=== PATIENT | male | born 2000 | race African-American/Black ===

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

== ENCOUNTER 2022-03-11 17:54 | Inpatient (IN) | payer MEDICAID, OTHER ==
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
[2022-03-11 20:21] LABS: Amphetamine Screen,Urine Not Detected (NotDetected); Barbiturate Screen,Urine Not Detected (NotDetected); Benzodiazepines Screen,Urine Not Detected (NotDetected); Cocaine Screen,Urine Not Detected (NotDetected); Methadone Screen, Urine Not Detected (NotDetected); Opiate Screen,Urine Not Detected (NotDetected); Oxycodone Screen, Urine Not Detected (NotDetected); Phencyclidine Screen,Urine Not Detected (NotDetected); Tricyclic Antidepressant,Urine Not Detected (NotDetected); Urn Cannabinoid Scrn Detected (NotDetected)
[2022-03-11] MEDS ORDERED: LORazepam 1 MG TAB PO PRN (21:18)
[2022-03-11] MEDS ORDERED: ACETAMINOPHEN TAB 325 MG TAB PO PRN ×2 (21:18→22:38)
[2022-03-11] MEDS ORDERED: MAG HYDROX/AL HYDROX/SIMETH 30 ML CUP PO PRN ×2 (21:18→22:43)
[2022-03-11] MEDS ORDERED: MAGNESIUM HYDROXIDE 2,400 MG/10 ML CUP PO PRN ×2 (21:18→22:44)
[2022-03-11] MEDS ORDERED: HALOPERIDOL LACTATE 5 MG/ML 1 ML VIAL IM PRN ×3 (21:18→22:42)
[2022-03-11] MEDS ORDERED: LORazepam 2 MG/ML INJ IM PRN ×2 (21:21→22:42)
[2022-03-11] MEDS ORDERED: haloperidoL 5 MG TAB PO PRN (21:22)
[2022-03-12 00:27] VITALS: BP 142/74; PULSE 75; RESP 14; TEMP 97.8
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
[2022-03-12 07:12] LABS: HCT 47.1 % (39.0-53.0); MCH 29.8 pg (25.0-35.0); MCV 87.6 fL (80.0-100.0); Mean Platelet Volume 8.4; Platelet Count 203 k/uL (150-450); RBC 5.38 m/uL (4.30-5.90); RDW 13.3 % (11.5-15.5)
[2022-03-12 07:41] LABS: ALT 21 U/L (4-49); AST 35 U/L (17-59); African American GFR (CKD) >90 (>60 ml/min/1.73 sqM); Albumin 4.2 g/dL (3.5-5.0); Alkaline Phosphatase 63 U/L (38-126); Anion Gap 13 mmol/L; Blood Urea Nitrogen 9 mg/dL (9-20); Calcium 9.6 mg/dL (8.4-10.2); Carbon Dioxide 26 mmol/L (22-30); Chloride 101 mmol/L (98-107); Glucose 86 mg/dL (74-99); Non-African American GFR(CKD) >90 (>60 ml/min/1.73 sqM); Potassium 3.9 mmol/L (3.5-5.1); Sodium 140 mmol/L (137-145); Total Bilirubin 2.6 mg/dL (0.2-1.3); Total Protein 7.2 g/dL (6.3-8.2)
[2022-03-12 07:45] LABS: T4, Free (Free Thyroxine) 1.14 ng/dL (0.78-2.19)
[2022-03-12] MEDS ORDERED: NICOTINE 14MG/24HR PATCH TRANSDERM SCH (09:00)
[2022-03-12 11:51] LABS: LDL Cholesterol,Calculated 67.5 mg/dL (0.0-131.0)
[2022-03-12 12:55] VITALS: BMI 25.2
[2022-03-12 14:46] LABS: Amorphous Sediment,Urine Many /hpf; Appearance,Urine Turbid (Clear); Bilirubin,Urine Negative (Negative); Blood,Urine Negative (Negative); Calcium Oxalate Crystals,Urine Few /hpf; Color,Urine Yellow; Glucose,Urine (UA) Negative (Negative); Ketones,Urine Trace (Negative); Leukocyte Esterase,Urine Negative (Negative); Mucus,Urine Moderate /hpf; Nitrite,Urine Negative (Negative); Protein,Urine 1+ (Negative); RBC,Urine 2 /hpf (0-5); Specific Gravity,Urine 1.032 (1.001-1.035)
[2022-03-12] MEDS: LORazepam 1 MG TAB PO PRN (15:07)
[2022-03-12] MEDS: haloperidoL 5 MG TAB PO PRN (17:36)
--- NOTE | 2022-03-12 20:08 | P.HP ---
Psychiatric H&P - . H&P Date: 03/12/22 History & Physical: Allergies Allergy/AdvReac Type Severity Reaction Status Date / Time No Known Allergies Allergy Verified 03/11/22 20:00 Vital Signs Temp 97.8 F 03/12/22 00:26 Pulse 75 03/12/22 00:26 Resp 14 03/12/22 00:26 BP 142/74 03/12/22 00:26 Pulse Ox 99 03/11/22 21:27 FiO2 Intake & Output 03/11/22 03/12/22 03/12/22 18:59 06:59 18:59 Weight 65.771 kg 79.7 kg 79.7 kg Laboratory Last Values WBC 11.0 k/uL (4.0-11.0) 03/12/22 06:33 RBC 5.38 m/uL (4.30-5.90) 03/12/22 06:33 Hgb 16.0 gm/dL (13.0-17.5) 03/12/22 06:33 Hct 47.1 % (39.0-53.0) 03/12/22 06:33 MCV 87.6 fL (80.0-100.0) 03/12/22 06:33 MCH 29.8 pg (25.0-35.0) 03/12/22 06:33 MCHC 34.0 g/dL (31.0-37.0) 03/12/22 06:33 RDW 13.3 % (11.5-15.5) 03/12/22 06:33 Plt Count 203 k/uL (150-450) 03/12/22 06:33 MPV 8.4 03/12/22 06:33 Sodium 140 mmol/L (137-145) 03/12/22 06:33 Potassium 3.9 mmol/L (3.5-5.1) 03/12/22 06:33 Chloride 101 mmol/L (98-107) 03/12/22 06:33 Carbon Dioxide 26 mmol/L (22-30) 03/12/22 06:33 Anion Gap 13 mmol/L 03/12/22 06:33 BUN 9 mg/dL (9-20) 03/12/22 06:33 Creatinine 1.01 mg/dL (0.66-1.25) 03/12/22 06:33 Est GFR (CKD-EPI)AfAm >90 (>60 ml/min/1.73 sqM) 03/12/22 06:33 Est GFR (CKD-EPI)NonAf >90 (>60 ml/min/1.73 sqM) 03/12/22 06:33 Glucose 86 mg/dL (74-99) 03/12/22 06:[address] Glu mg/dL 106 03/12/22 06:33 Hemoglobin A1c 5.3 % (0.0-6.0) 03/12/22 06:33 Calcium 9.6 mg/dL (8.4-10.2) 03/12/22 06:33 Total Bilirubin 2.6 mg/dL (0.2-1.3) H 03/12/22 06:33 AST 35 U/L (17-59) 03/12/22 06:33 ALT 21 U/L (4-49) 03/12/22 06:33 Alkaline Phosphatase 63 U/L (38-126) 03/12/22 06:33 Total Protein 7.2 g/dL (6.3-8.2) 03/12/22 06:33 Albumin 4.2 g/dL (3.5-5.0) 03/12/22 06:33 Triglycerides 62.50 mg/dL (0.00-149.00) 03/12/22 06:33 Cholesterol 137.00 mg/dL (0.00-200.00) 03/12/22 06:33 LDL Cholesterol, Calc 67.5 mg/dL (0.0-131.0) 03/12/22 06:33 VLDL Cholesterol, Calc 12.50 mg/dL (5.00-40.00) 03/12/22 06:33 HDL Cholesterol 57.00 mg/dL (40.00-60.00) 03/12/22 06:33 Cholesterol/HDL Ratio 2.40 Ratio 03/12/22 06:33 Free T4 1.14 ng/dL (0.78-2.19) 03/12/22 06:33 Urine Color Yellow 03/11/22 20:17 Urine Appearance Turbid (Clear) 03/11/22 20:17 Urine pH 6.0 (5.0-8.0) 03/11/22 20:17 Ur Specific [place] 1.032 (1.001-1.035) 03/11/22 20:17 Urine Protein 1+ (Negative) H 03/11/22 20:17 Urine Glucose (UA) Negative (Negative) 03/11/22 20:17 Urine Ketones Trace (Negative) H 03/11/22 20:17 Urine Blood Negative (Negative) 03/11/22 20:17 Urine Nitrite Negative (Negative) 03/11/22 20:17 Urine Bilirubin Negative (Negative) 03/11/22 20:17 Urine Urobilinogen 4.0 mg/dL (<2.0) 03/11/22 20:17 Ur Leukocyte Esterase Negative (Negative) 03/11/22 20:17 Urine RBC 2 /hpf (0-5) 03/11/22 20:17 Calcium Oxalate Crystal Few /hpf (None) H 03/11/22 20:17 Amorphous Sediment Many /hpf (None) H 03/11/22 20:17 Urine Mucus Moderate /hpf (None) H 03/11/22 20:17 Urine Opiates Screen Not Detected (NotDetected) 03/11/22 20:09 Ur Oxycodone Screen Not Detected (NotDetected) 03/11/22 20:09 Urine Methadone Screen Not Detected (NotDetected) 03/11/22 20:09 Ur Propoxyphene Screen Not Detected (NotDetected) 03/11/22 20:09 Ur Barbiturates Screen Not Detected (NotDetected) 03/11/22 20:09 U Tricyclic Antidepress Not Detected (NotDetected) 03/11/22 20:09 Ur Phencyclidine Scrn Not Detected (NotDetected) 03/11/22 20:09 Ur Amphetamines Screen Not Detected (NotDetected) 03/11/22 20:09 U Methamphetamines Scrn Not Detected (NotDetected) 03/11/22 20:09 U Benzodiazepines Scrn Not Detected (NotDetected) 03/11/22 20:09 Urine Cocaine Screen Not Detected (NotDetected) 03/11/22 20:09 U Marijuana (THC) Screen Detected (NotDetected) H 03/11/22 20:09 Coronavirus (PCR) Not Detected (Not Detectd) 03/11/22 19:55 03/12/22 17:54 IDENTIFYING DATA: Patient is a single 21-year-old male who is presenting from police hold for suicide attempt via hanging from seat belt HPI: Patient reports that he had an altercation with his brother. Police were called and while the patient was in the police vehicle, he attempted suicide via hanging himself with a seat belt. He was therefore brought in to the ED. UDS was positive for THC. Patient reports that he has been anxious regarding his legal status. Patient reports that he is currently on probation and was worried about the new charges. As a result, he attempted suicide. He endorses having a history of anxiety and worrying about his future. He endorses feeling restless and having trouble concentrating. In psychiatric review of systems, patient denies feeling depressed most days. However, patient does endorse that he was trying to kill himself due to his low mood (secondary to legal status). He reports sleeping well at night generally. He enjoys spending time with friends. He reports good energy and good appetite. She denies symptoms consistent with thao. He denies symptoms of psychosis including auditory and visual hallucinations, ideas of reference, and paranoia. PSYCH HX: Previous psychiatrist: Denies outpatient psych but was scheduled to go to [facility] in the past Therapist: Denies Past tx: Ritalin, Adderall, Risperdal Hospitalizations: Denies NSSI: Denies SA: Denies PMH: Sickle cell anemia ALLERGIES: Denies PCP: Denies Head injuries: Denies Seizures: Denies SUBSTANCE HX: Alcohol: Denies Cannabis: Few times a week Denies using other substances SOCIAL/LEGAL HX: Lives with mother, brother, and step-father. He reports having a good childhood. Vocation: [employer] Legal problems: Currently on probation Highest level of education: [employer]4 completed 2 semesters. In IEP during school. FAM PSYCH HX: Denies Suicide attempts: Denies DEVELOPMENT: Denies /labor complications. MENTAL STATUS EXAM: Patient is a 21-year-old AA male who appears his stated age. He is dressed casually. Grooming and hygiene are appropriate.Visible coleman around his neck. Good eye contact. No abnormal movements (facial tics or tremors) are appreciated. Does not appear to be restless. Cooperative to interview. Speaks Venezuelan. Speech is clear and coherent with regular rate and intonation. Mood is anxious. Affect is mood congruent. Thought process is linear and goal-directed. Patient participates in conversation and answers questions appropriately. Thought content: Recent suicide attempt. Engaged in treatment planning today. Denies AVH, paranoia. A&Ox3. Attention and concentration intact to interview. No evidence that patient is responding to internal stimuli. Recent and remote memory are intact to interview. Judgment limited. Insight is limited. STRENGTHS/WEAKNESSES: Legal issues but has family support INTELLECT: average IMPRESSIONS: Adjustment disorder with depressed mood and anxiety H/O ADHD PLAN: -Patient is admitted under voluntary status to MHU for stabilization of psychiatric symptoms and safety. Patient signed adult voluntary form and medication consent and is placed in patient's chart. -Medications : Will start patient on Wellbutrin XL 150 mg daily -Haldol and Ativan PRNs for agitation/anxiety -Patient was counselled on substance abuse and desired to cut back on use -Patient was informed of the risks, benefits and side effects of the medication and patient verbally consented to taking the medications. Patient signed med consent form and was placed in chart. -Internal Medicine consult to perform medical evaluation and physical. -SW on board for discharge planning. Encourage patient to participate in groups to work on coping skills. 03/12/22 19:53 03/12/22 20:04
[2022-03-13] MEDS: buPROPion XL 150 MG TAB.ER.24H PO SCH (08:26)
[2022-03-13] MEDS: LORazepam 1 MG TAB PO PRN ×2 (10:06→21:12)
--- NOTE | 2022-03-13 17:31 | P.PN ---
Progress Note - Text Progress Note Date: 03/13/22 Interval History: Patient reports that he has sorted out the situation with police and therefore has been feeling slightly better. He continues to have somewhat low mood. He denies side effects to Wellbutrin. He reported trouble sleeping last night. Patient earlier became agitated with a roommate and krysta renee was called. The patient then responded to redirection by nursing staff and this provider. He wanted his room to be changed and felt that the staff was not hearing him. He denies current suicidal ideation but is unable to provide coping skills to prevent further decompensation. He attended groups. Patient denies HI and denies access to firearms at home. Mental Status Exam: Patient is a 21-year-old AA male who appears his stated age. He is dressed casually. Grooming and hygiene are appropriate.Visible coleman around his neck. Good eye contact. No abnormal movements (facial tics or tremors) are appreciated. Does not appear to be restless. Cooperative to interview. Speaks Bangladeshi. Speech is clear and coherent with regular rate and intonation. Mood is anxious. Affect is mood congruent. Thought process is linear and goal-directed. Patient participates in conversation and answers questions appropriately. Thought content: Recent suicide attempt. Engaged in treatment planning today. Denies AVH, paranoia. A&Ox3. Attention and concentration intact to interview. No evidence that patient is responding to internal stimuli. Recent and remote memory are intact to interview. Judgment limited. Insight is limited. Assessment Adjustment disorder with depressed mood and anxiety H/O ADHD Plan: -Patient is admitted under voluntary status to MHU for stabilization of psychiatric symptoms and safety. Patient signed adult voluntary form and medication consent and is placed in patient's chart. -Medications : Wellbutrin XL 150 mg daily and trazodone 50 mg qHS for sleep -Haldol and Ativan PRNs for agitation/anxiety -Patient was counselled on substance abuse and desired to cut back on use -Patient was informed of the risks, benefits and side effects of the medication and patient verbally consented to taking the medications. Patient signed med consent form and was placed in chart. -Internal Medicine consult to perform medical evaluation and physical. -SW on board for discharge planning. Encourage patient to participate in groups to work on coping skills.
[2022-03-13] MEDS ORDERED: traZODone HCL 50 MG TAB PO SCH (21:00)
[2022-03-13] MEDS: haloperidoL 5 MG TAB PO PRN (21:12)
[2022-03-14] MEDS: buPROPion XL 150 MG TAB.ER.24H PO SCH (08:55)
--- NOTE | 2022-03-14 11:18 | P.DS ---
Providers Date of admission: 03/11/22 21:10 Expected date of discharge: 03/14/22 Attending physician: Rj Kimball MD Consults: 03/11/22 23:06 Consult Physician Routine Consulting Provider: Marcelo Luciano Consult Reason/Comments: Medical management Do you want consulting provider notified?: Yes Primary care physician: Stated None - Discharge Diagnosis(es) (1) Adjustment disorder with mixed anxiety and depressed mood Current Visit: Yes Status: Acute Priority: High (2) Personality disorder, unspecified Current Visit: Yes Status: Acute Priority: High (3) Cannabis use disorder Current Visit: Yes Status: Acute Priority: Low Hospital Course: Admission HPI: Admission note was completed by Dr Altman "Patient is a single 21-year-old male who is presenting from police hold for suicide attempt via hanging from seat belt. Patient reports that he had an altercation with his brother. Police were called and while the patient was in the police vehicle, he attempted suicide via hanging himself with a seat belt. He was therefore brought in to the ED. UDS was positive for THC. Patient reports that he has been anxious regarding his legal status. Patient reports that he is currently on probation and was worried about the new charges. As a result, he attempted suicide. He endorses having a history of anxiety and worrying about his future. He endorses feeling restless and having trouble concentrating. In psychiatric review of systems, patient denies feeling depressed most days. However, patient does endorse that he was trying to kill himself due to his low mood (secondary to legal status). He reports sleeping well at night generally. He enjoys spending time with friends. He reports good energy and good appetite. She denies symptoms consistent with thao. He denies symptoms of psychosis including auditory and visual hallucinations, ideas of reference, and paranoia." Hospital course: Upon admission to the unit patient was directable and agreeable to commence treatment and signed adult voluntary form. Patient got along well with other patients on the unit and followed unit protocol. Patient was compliant with the medications and denied any side effects throughout hospital course. Patient was started on Wellbutrin XL 150 mg daily, trazodone 50 mg daily at bedtime for sleep/mood. Patient spoke of his stressors and engaged in therapy both group and individual. Partient was fairly disruptive and manipulative/ bvehavioral on the unit. Patient was also seen by medical team for history and physical exam. Throughout the course of the hospitalization patient gradually improved with regards to mood, anxiety, sleep and returned back to their baseline level of functioning. On the day of discharge patient denied any suicidal or homicidal ideations intent or plan denied any auditory or visual hallucinations. Patient endorsed wanting to live for his health and future. The patient denied any access to guns or weapons. Patient denied any paranoia and did not endorse any delusions. Patient does have a significant history of substance abuse and was counseled on abstaining from all substances including alcohol and marijuana. Patient was also counseled on the medications and need for regular compliance and was encouraged to follow-up with their outpatient appointment for mental health and also for primary care. Patient will be discharged today back to longterm. Mental status exam: General Appearance: Patient appears to be well built, stated age is alert, pleasant, and cooperative. Patient is in no acute distress and has improved hygiene and grooming Behavior: Patient is calmly seated without any agitated behavior. Speech: Patient's speech is fluent and nonpressured. Mood/Affect: Patient reports their mood is "ok", affect is congruent Suicidality/Homicidality: Patient denies having any suicidal or homicidal ideation intent or plan. Perceptions: Patient denies any auditory or visual hallucinations. Though content/process: There is no evidence of any delusional thought content and thought process is linear and goal-directed. Memory and concentration: AOX3, grossly intact for the purposes of this session. Can spell "WORLD" backwards correctly. Judgment and insight: chronically poor, however has improved with guarded prognosis Impression: Adjustment disorder mixed with depressed mood and anxiety Personality disorder unspecified, likely antisocial personality disorder Cannabis use disorder Plan: -Continue with discharge today as patient has improved and stabilized psychiatrically and is not currently an imminent threat to himself and/or others. Patient will remain at chronically elevated risk for harm to self and/or others due to his impulsivity. -Continue medications: Wellbutrin XL 150 mg daily for mood, trazodone 50 mg daily at bedtime for sleep/mood. -Patient was counseled on the need for medication compliance and appropriate follow-up at mental health and also primary care for medical issues. Patient verbalized understanding and agreed. -Social work to help arrange patient's discharge and coordinate back to longterm into police custody. Social work also to arrange for patients follow up appointments for psychiatric care along with follow up with primary care provider. -Patient counseled on abstaining from recreational drugs and marijuana and alcohol. Was informed/educated on the adverse effects on their physical and mental health. Patient verbally agreed and understood. -Patient was instructed to return to the hospital or seek immediate medical care if their psychiatric or medical symptoms do worsen or reoccur. Allergies Allergy/AdvReac Type Severity Reaction Status Date / Time Mushroom Allergy Swelling Verified 03/12/22 18:01 scallops Allergy Swelling Verified 03/12/22 18:01 Laboratory Results WBC 11.0 k/uL (4.0-11.0) 03/12/22 06:33 RBC 5.38 m/uL (4.30-5.90) 03/12/22 06:33 Hgb 16.0 gm/dL (13.0-17.5) 03/12/22 06:33 Hct 47.1 % (39.0-53.0) 03/12/22 06:33 MCV 87.6 fL (80.0-100.0) 03/12/22 06:33 MCH 29.8 pg (25.0-35.0) 03/12/22 06:33 MCHC 34.0 g/dL (31.0-37.0) 03/12/22 06:33 RDW 13.3 % (11.5-15.5) 03/12/22 06:33 Plt Count 203 k/uL (150-450) 03/12/22 06:33 MPV 8.4 03/12/22 06:33 Sodium 140 mmol/L (137-145) 03/12/22 06:33 Potassium 3.9 mmol/L (3.5-5.1) 03/12/22 06:33 Chloride 101 mmol/L (98-107) 03/12/22 06:33 Carbon Dioxide 26 mmol/L (22-30) 03/12/22 06:33 Anion Gap 13 mmol/L 03/12/22 06:33 BUN 9 mg/dL (9-20) 03/12/22 06:33 Creatinine 1.01 mg/dL (0.66-1.25) 03/12/22 06:33 Est GFR (CKD-EPI)AfAm >90 (>60 ml/min/1.73 sqM) 03/12/22 06:33 Est GFR (CKD-EPI)NonAf >90 (>60 ml/min/1.73 sqM) 03/12/22 06:33 Glucose 86 mg/dL (74-99) 03/12/22 06:[address] Glu mg/dL 106 03/12/22 06:33 Hemoglobin A1c 5.3 % (0.0-6.0) 03/12/22 06:33 Calcium 9.6 mg/dL (8.4-10.2) 03/12/22 06:33 Total Bilirubin 2.6 mg/dL (0.2-1.3) H 03/12/22 06:33 AST 35 U/L (17-59) 03/12/22 06:33 ALT 21 U/L (4-49) 03/12/22 06:33 Alkaline Phosphatase 63 U/L (38-126) 03/12/22 06:33 Total Protein 7.2 g/dL (6.3-8.2) 03/12/22 06:33 Albumin 4.2 g/dL (3.5-5.0) 03/12/22 06:33 Triglycerides 62.50 mg/dL (0.00-149.00) 03/12/22 06:33 Cholesterol 137.00 mg/dL (0.00-200.00) 03/12/22 06:33 LDL Cholesterol, Calc 67.5 mg/dL (0.0-131.0) 03/12/22 06:33 VLDL Cholesterol, Calc 12.50 mg/dL (5.00-40.00) 03/12/22 06:33 HDL Cholesterol 57.00 mg/dL (40.00-60.00) 03/12/22 06:33 Cholesterol/HDL Ratio 2.40 Ratio 03/12/22 06:33 Free T4 1.14 ng/dL (0.78-2.19) 03/12/22 06:33 Urine Color Yellow 03/11/22 20:17 Urine Appearance Turbid (Clear) 03/11/22 20:17 Urine pH 6.0 (5.0-8.0) 03/11/22 20:17 Ur Specific [place] 1.032 (1.001-1.035) 03/11/22 20:17 Urine Protein 1+ (Negative) H 03/11/22 20:17 Urine Glucose (UA) Negative (Negative) 03/11/22 20:17 Urine Ketones Trace (Negative) H 03/11/22 20:17 Urine Blood Negative (Negative) 03/11/22 20:17 Urine Nitrite Negative (Negative) 03/11/22 20:17 Urine Bilirubin Negative (Negative) 03/11/22 20:17 Urine Urobilinogen 4.0 mg/dL (<2.0) 03/11/22 20:17 Ur Leukocyte Esterase Negative (Negative) 03/11/22 20:17 Urine RBC 2 /hpf (0-5) 03/11/22 20:17 Calcium Oxalate Crystal Few /hpf (None) H 03/11/22 20:17 Amorphous Sediment Many /hpf (None) H 03/11/22 20:17 Urine Mucus Moderate /hpf (None) H 03/11/22 20:17 Urine Opiates Screen Not Detected (NotDetected) 03/11/22 20:09 Ur Oxycodone Screen Not Detected (NotDetected) 03/11/22 20:09 Urine Methadone Screen Not Detected (NotDetected) 03/11/22 20:09 Ur Propoxyphene Screen Not Detected (NotDetected) 03/11/22 20:09 Ur Barbiturates Screen Not Detected (NotDetected) 03/11/22 20:09 U Tricyclic Antidepress Not Detected (NotDetected) 03/11/22 20:09 Ur Phencyclidine Scrn Not Detected (NotDetected) 03/11/22 20:09 Ur Amphetamines Screen Not Detected (NotDetected) 03/11/22 20:09 U Methamphetamines Scrn Not Detected (NotDetected) 03/11/22 20:09 U Benzodiazepines Scrn Not Detected (NotDetected) 03/11/22 20:09 Urine Cocaine Screen Not Detected (NotDetected) 03/11/22 20:09 U Marijuana (THC) Screen Detected (NotDetected) H 03/11/22 20:09 Coronavirus (PCR) Not Detected (Not Detectd) 03/11/22 19:55 Vital Signs Temp 97.8 F 03/12/22 00:26 Pulse 75 03/12/22 00:26 Resp 14 03/12/22 00:26 BP 142/74 03/12/22 00:26 Pulse Ox 99 03/11/22 21:27 FiO2 Intake & Output 03/13/22 03/14/22 03/14/22 18:59 06:59 18:59 Weight 79 kg Patient Condition at Discharge: Stable Plan - Discharge Summary Discharge Rx Participant: Yes New Discharge Prescriptions: No Action No Known Home Medications Discharge Medication List No Known Home Medications 05/12/17 [History] Follow up Appointment(s)/Referral(s): [facility] [NON-STAFF] - 1 Week Activity/Diet/Wound Care/Special Instructions: Avoid the use of street drugs and alcohol. Take all prescriptions as prescribed. When you are in need of refills on your medications, please contact your medical provider and/or outpatient psychiatrist to have this done. Please go to scheduled outpatient appointment for aftercare treatment. If symptoms return or become worse, call the crisis line at and/or go to the nearest emergency room for evaluation.
== END 2022-03-14 12:45 | DRG 882 ==
LOC: EC 17:54 → 3MHU 21:10
PROVIDERS: ADMIT Psychiatry & Neurology Psychiatry; ATTEND Psychiatry & Neurology Psychiatry
DX: F43.23 Adjustment disorder with mixed anxiety and depressed mood (principal); T71.162A Asphyxiation due to hanging, intentional self-harm, initial encounter; F12.10 Cannabis abuse, uncomplicated; F31.9 Bipolar disorder, unspecified; F60.2 Antisocial personality disorder; D57.1 Sickle-cell disease without crisis; S10.91XA Abrasion of unspecified part of neck, initial encounter; Z71.3 Dietary counseling and surveillance; Z71.89 Other specified counseling; Z28.21 Immunization not carried out because of patient refusal; Z79.899 Other long term (current) drug therapy; Z65.3 Problems related to other legal circumstances; Z20.822 Contact with and (suspected) exposure to COVID-19
CPT/HCPCS: 80053; 80061; 80306; 81001; 82075; 83036; 84439; 85027; 87635; 99285